=== PATIENT | male | born 1965 | race American Indian/Alaskan Native ===

== ENCOUNTER 2018-08-22 19:17 | Emergency (ER) | payer OTHER ==
[2018-08-22 19:34] VITALS: BP 144/96
--- NOTE | 2018-08-22 19:35 | Emergency Department Report ---
ED Eye Problem HPI - General Chief complaint: Eye Problems Stated complaint: BOTH EYE PAIN/RED Time Seen by Provider: 08/22/18 19:32 Source: patient Mode of arrival: Ambulatory Limitations: No Limitations - History of Present Illness Initial comments: pt is a 53 yo male who presents with bilateral eye erythema and pain that began yesterday morning. does not wear contacts. has had mucus drainage from bilateral eyes. states has had crusting and eyelash matting. no vision changes. no PMHx, no allergies to meds. - Related Data Previous Rx's Medication Instructions Recorded Last Taken Type Erythromycin [Erythromycin Ophth 0.5 inch OP QID 7 Days #1 tube 08/22/18 Unknown Rx Oint] Allergies Allergy/AdvReac Type Severity Reaction Status Date / Time No Known Allergies Allergy Unverified 08/22/18 19:21 ED Review of Systems ROS: Stated complaint: BOTH EYE PAIN/RED Other details as noted in HPI Comment: All other systems reviewed and negative ED Past Medical Hx - Medications Home Medications: Home Medications Medication Instructions Recorded Confirmed Last Taken Type Erythromycin [Erythromycin Ophth 0.5 inch OP QID 7 Days #1 tube 08/22/18 Unknown Rx Oint] ED Physical Exam - General Limitations: No Limitations General appearance: alert, in no apparent distress - Head Head exam: Present: atraumatic, normocephalic - Eye Eye exam: Present: PERRL, EOMI, conjunctival injection (bilaterally ). Absent: scleral icterus, nystagmus, periorbital swelling, periorbital tenderness - ENT ENT exam: Present: mucous membranes moist - Neurological Exam Neurological exam: Present: alert, oriented X3 - Psychiatric Psychiatric exam: Present: normal affect, normal mood - Skin Skin exam: Present: warm, dry, intact ED Course Vital Signs 08/22/18 19:32 Temperature 99.4 F Pulse Rate 98 H Respiratory 18 Rate Blood Pressure 144/96 O2 Sat by Pulse 97 Oximetry ED Medical Decision Making - Medical Decision Making pt is a 53 yo male who presents with bilateral eye erythema and pain that began yesterday morning. does not wear contacts. has had mucus drainage from bilateral eyes. states has had crusting and eyelash matting. no vision changes. no PMHx, no allergies to meds. VSS. examination consistent with bilateral conjunctivitis. pt given prescription for erythromycin ointment. advised to please use medication as prescribed. please wash your hands frequently. follow up with a primary care doctor in the next 3-5 days. return to the emergency room for any new or worsening symptoms. - Differential Diagnosis conjunctivitis, chalazion, hordeolum, corneal abrasion Critical care attestation.: If time is entered above; I have spent that time in minutes in the direct care of this critically ill patient, excluding procedure time. ED Disposition Clinical Impression: Conjunctivitis Qualifiers: Conjunctivitis type: acute Acute conjunctivitis type: unspecified Laterality: bilateral Qualified Code(s): H10.33 - Unspecified acute conjunctivitis, bilateral Disposition: - TO HOME OR SELFCARE Is pt being admited?: No Does the pt Need Aspirin: No Condition: Stable Instructions: Conjunctivitis (ED) Additional Instructions: please use medication as prescribed. please wash your hands frequently. follow up with a primary care doctor in the next 3-5 days. return to the emergency room for any new or worsening symptoms. Prescriptions: Erythromycin [Erythromycin Ophth Oint] 0.5 inch OP QID 7 Days #1 tube Referrals: [facility] [Outside] - 3-5 Days [facility] [Provider Group] - 3-5 Days [facility] [Outside] - 3-5 Days Forms: Work/School Release Form(ED) Time of Disposition: 19:41 Print Language: [place]
== END 2018-08-22 20:00 | disposition home or self-care (01) ==
LOC: ED 19:17
DX: H10.9 Unspecified conjunctivitis (principal); Z79.899 Other long term (current) drug therapy
CPT/HCPCS: 99281